=== PATIENT | female | born 1980 | race Caucasian/White ===

== ENCOUNTER 2016-12-26 13:46 | Emergency (ER) | payer OTHER ==
[2016-12-26 14:14] VITALS: BP 130/82; O2SAT 99
--- NOTE | 2016-12-26 14:42 | ERPHSYRPT ---
- History of Present Illness Time Seen by Provider: 12/26/16 14:22 Source: patient Patient Subjective Stated Complaint: PT REPORTS DX WITH RINGWORM ET PLACED ON MEDS-STATES IT HAS SPREAD SINCE THEN-REPORTS MILD ITCHING Triage Nursing Assessment: PT PINK WARM ET [id number] EASY ET NONLABORED- RASH NOTED TO [id number] DRAINAGE NOTED Physician History: CC: rash Hx: 36 y/o patient of Dr Cortes with itching rash, worse over a few days. At first she thought ringworm on her back and saw urgent care and started clotimazole which has not helped. The rash has spread to her back, trunk, arm, and legs, worse on trunk. Moderate pruritis. No fever or chills. No hx of same. ALL: None Meds: Abililfy, trazadone, xanax LMP November 27 BTL Timing/Duration: day(s) (few) Allergies/Adverse Reactions: No Known Drug Allergies Allergy (Verified 12/26/16 14:14) Home Medications: Alprazolam [Xanax 0.5 mg] 1.5 mg PO HS 03/30/14 [History] Aripiprazole 10 mg [Abilify 10 MG] 10 mg PO DAILY 12/26/16 [History] Trazodone HCl 50 mg [Desyrel 50 mg] 50 mg PO HS 12/26/16 [History] Hx Tetanus, Diphtheria Vaccination/Date Given: No Hx Influenza Vaccination/Date Given: Yes (2015) Hx Pneumococcal Vaccination/Date Given: No Immunizations Up to Date: Yes - Review of Systems Constitutional: No Fever, No Chills Eyes: No Symptoms Respiratory: No Dyspnea, No Wheezing Abdominal/Gastrointestinal: No Nausea, No Vomiting Skin: Pruritis, Rash Neurological: No Focal Weakness, No Parasthesia - Past Medical History Pertinent Past Medical History: No Neurological History: No Pertinent History ENT History: No Pertinent History Cardiac History: No Pertinent History Respiratory History: No Pertinent History Endocrine Medical History: No Pertinent History Musculoskeletal History: No Pertinent History GI Medical History: No Pertinent History, GERD History: No Pertinent History Psycho-Social History: Anxiety Female Reproductive Disorders: No Pertinent History Other Medical History: UTI - Past Surgical History Past Surgical History: Yes Neuro Surgical History: No Pertinent History Cardiac: No Pertinent History Respiratory: No Pertinent History Gastrointestinal: No Pertinent History Genitourinary: No Pertinent History Musculoskeletal: Orthopedic Surgery Female Surgical History: Section, Tubal Ligation Other Surgical History: C/S IN FEB ,TUBAL IN FEB - Social History Smoking Status: Never smoker Exposure to second hand smoke: No Drug Use: none Patient Lives Alone: No - Female History Hx Last Menstrual Period: NOVEMBER 27 2016 Hx Now: Yes - Nursing Vital Signs Nursing Vital Signs: Initial Vital Signs Temperature 97.6 F 12/26/16 14:10 Pulse Rate 85 12/26/16 14:10 Respiratory Rate 18 12/26/16 14:10 Blood Pressure 130/82 12/26/16 14:10 O2 Sat by Pulse Oximetry 99 12/26/16 14:10 Pain Scale Pain Intensity 0 - Physical Exam General Appearance: alert Eye Exam: PERRL/EOMI Ears, Nose, Throat Exam: moist mucous membranes Neck Exam: supple Cardiovascular Exam: regular rate/rhythm Gastrointestinal/Abdomen Exam: soft, No tenderness, No distention Extremity Exam: normal inspection, normal range of motion Neurologic Exam: alert, oriented x 3, cooperative Skin Exam: warm, dry, rash (scaling plaque rash with some underlying erythema on trunk in multiple spots and some on arms and legs. No petechia. Spares palms and soles.) SpO2: 99 Oxygen Delivery: Room Air - Course Nursing assessment & vital signs reviewed: Yes - Progress Progress Note: 12/26/16 14:42 The rash appears to be pytiriasis rosea. Instr given. Will order RPR. Counseled pt/family regarding: diagnosis, need for follow-up - Departure Time of Disposition: 14:43 Departure Disposition: Home Clinical Impression: Pityriasis rosea Condition: Stable Critical Care Time: No Referrals: CHELI CORTES [Primary Care Provider] - Instructions: Rash Additional Instructions: Your rash appears to be pityriasis rosea. Rx eurceyn/lidex/menthol. Rx atarax. Aveeno oatmeal baths. Follow up with Dr Cortes next week. Prescriptions: Hydroxyzine HCl 1 tab PO Q6H PRN PRN #20 tablet PRN Reason: rash,rest
[2016-12-26 14:52] VITALS: PULSE 81
== END 2016-12-26 14:54 | disposition home or self-care (01) ==
LOC: ED 13:46
DX: L42 Pityriasis rosea (principal)
CPT/HCPCS: 36415; 86592; 99284

== ENCOUNTER 2017-04-27 07:49 | Emergency (ER) | payer OTHER ==
[2017-04-27 08:00] VITALS: O2SAT 95
[2017-04-27] MEDS ORDERED: MOTRIN 600 MG PO ONE (08:05)
--- NOTE | 2017-04-27 08:09 | ERPHSYRPT ---
- History of Present Illness Time Seen by Provider: 04/27/17 08:03 Source: patient Patient Subjective Stated Complaint: pt states she twisted right ankle and fell yesterday.no other injury Triage Nursing Assessment: pt alert, resp easy, skin w/d,pink. walked to room. has swelling to lateral side of ankle, no bruising noted Physician History: CC: right ankle pain Hx: 36 y/o patient of Dr Cortes fell and twisted right ankle yesterday. Pain and swelling was severe, now moderate. No other injuries. No N/T/W. States not . Took APAP last night for pain. Severity of Pain-Max: severe Severity of Pain-Current: moderate Lower Extremities Pain: ankle: right Allergies/Adverse Reactions: No Known Drug Allergies Allergy (Verified 04/27/17 07:59) Home Medications: Aripiprazole 10 mg [Abilify 10 MG] 10 mg PO DAILY 12/26/16 [History] Trazodone HCl 50 mg [Desyrel 50 mg] 50 mg PO HS 12/26/16 [History] Hx Tetanus, Diphtheria Vaccination/Date Given: No Hx Influenza Vaccination/Date Given: Yes Hx Pneumococcal Vaccination/Date Given: No Immunizations Up to Date: Yes - Review of Systems Constitutional: No Symptoms Respiratory: No Dyspnea Cardiac: No Chest Pain Abdominal/Gastrointestinal: No Abdominal Pain Musculoskeletal: Fall, Injury, Joint Pain (right ankle), No Back Pain, No Neck Pain Neurological: No Focal Weakness, No Parasthesia All Other Systems: Reviewed and Negative - Past Medical History Pertinent Past Medical History: No Neurological History: No Pertinent History ENT History: No Pertinent History Cardiac History: No Pertinent History Respiratory History: No Pertinent History Endocrine Medical History: No Pertinent History Musculoskeletal History: No Pertinent History GI Medical History: No Pertinent History, GERD History: No Pertinent History Psycho-Social History: Anxiety Female Reproductive Disorders: No Pertinent History Other Medical History: UTI - Past Surgical History Past Surgical History: Yes Neuro Surgical History: No Pertinent History Cardiac: No Pertinent History Respiratory: No Pertinent History Gastrointestinal: No Pertinent History Genitourinary: No Pertinent History Musculoskeletal: Orthopedic Surgery Female Surgical History: Section, Tubal Ligation - Social History Smoking Status: Never smoker Exposure to second hand smoke: No Drug Use: none Patient Lives Alone: No - Female History Hx Last Menstrual Period: ablasion Hx Now: No - Nursing Vital Signs Nursing Vital Signs: Initial Vital Signs Temperature 99.0 F 04/27/17 07:56 Pulse Rate 100 H 04/27/17 07:56 Respiratory Rate 18 04/27/17 07:56 Blood Pressure 129/70 04/27/17 07:56 O2 Sat by Pulse Oximetry 95 04/27/17 07:56 Pain Scale Pain Intensity 7 - Physical Exam General Appearance: alert, obese Eyes, Ears, Nose, Throat Exam: normal ENT inspection, moist mucous membranes Neck Exam: normal inspection, supple Cardiovascular/Respiratory Exam: regular rate/rhythm Hips Exam: right: non-tender Legs Exam: right leg: non-tender, normal inspection Knees Exam: right knee: non-tender (no fibular head tenderness), normal inspection Ankle Exam: right ankle: bone tenderness (lateral malleolus), pain, soft tissue tenderness, swelling (moderate lateral) Foot Exam: right foot: non-tender, normal inspection Neuro/Tendon Exam: normal sensation, normal motor functions Mental Status Exam: alert, oriented x 3, cooperative Skin Exam: warm, dry, No rash SpO2 Interpretation: normal SpO2: 95 Oxygen Delivery: Room Air - Course Nursing assessment & vital signs reviewed: Yes - Radiology Exams right ankle X-ray Interpretation: Interpreted by me (lateral STS, fibular avulsion fracture) Ordered Tests: Active Orders 24 hr Category Date Time Status Cold Application STAT Care 04/27/17 08:05 Active Splint STAT Care 04/27/17 08:25 Active ANKLE (3 VIEWS) Stat Exams 04/27/17 08:05 Taken Medication Summary Discontinued Medications Generic Name Dose Route Start Last Admin Trade Name Omar PRN Reason Stop Dose Admin Ibuprofen 600 mg 04/27/17 08:05 04/27/17 08:11 Motrin 600 Mg PO 04/27/17 08:06 600 mg STAT ONE Administration Ibuprofen Confirm 04/27/17 08:10 Motrin 600 Mg Administered 04/27/17 08:11 Dose 600 mg .ROUTE .STK-MED ONE - Progress Progress Note: 04/27/17 08:30 Pt has high grade sprain and possible avulsion fracture fibular. CAM boot. She prefers no crutches. Follow up advised. Counseled pt/family regarding: diagnosis, need for follow-up, rad results - Departure Time of Disposition: 08:31 Departure Disposition: Home Clinical Impression: Right ankle sprain Qualifiers: Encounter type: initial encounter Involved ligament of ankle: unspecified ligament Qualified Code(s): S93.401A - Sprain of unspecified ligament of right ankle, initial encounter Avulsion fracture of lateral malleolus of right fibula Qualifiers: Encounter type: initial encounter Fracture type: closed Qualified Code(s): S82.61XA - Displaced fracture of lateral malleolus of right fibula, initial encounter for closed fracture Condition: Stable Critical Care Time: No Referrals: CHELI CORTES [Primary Care Provider] - Instructions: Ankle Sprain, Ankle Fracture Additional Instructions: CAM walker boot. Rx motrin=ibuprofen. Rx norco if needed for pain- no driving or operating machinery. Ice, rest, elevate. Follow up this week with Dr Cortes or Dr Peña. Prescriptions: Hydrocodone Bit/Acetaminophen [[place] 5-325 Tablet] 1 each PO Q6H PRN PRN #10 tablet MDD 4 PRN Reason: Pain Ibuprofen 600 mg PO Q6H PRN PRN #24 tablet PRN Reason: Pain
[2017-04-27] MEDS ORDERED: MOTRIN 600 MG ONE (08:10)
--- NOTE | 2017-04-27 08:37 | XRAY ---
Indication: Pain following twisting injury. Comparison: None 3 views of the right ankle demonstrates soft tissue swelling and tiny well-circumscribed ossification adjacent to the tip of the lateral malleolus either degenerative versus old injury. No other bony, articular, or soft tissue abnormalities.
[2017-04-27 09:40] VITALS: BP 115/78; PULSE 95
== END 2017-04-27 09:28 | disposition home or self-care (01) ==
LOC: ED 07:49
DX: S93.401A Sprain of unspecified ligament of right ankle, initial encounter (principal); S82.61XA Displaced fracture of lateral malleolus of right fibula, initial encounter for closed fracture; W19.XXXA Unspecified fall, initial encounter; X50.0XXA Overexertion from strenuous movement or load, initial encounter; M25.571 Pain in right ankle and joints of right foot
CPT/HCPCS: 73610; 99283; L4386; A9270-GY

== ENCOUNTER 2021-05-13 11:11 | Observation (INO) | payer MEDICAID ==
[2021-05-13 12:23] LABS: INFLUENZA A NEGATIVE (NEGATIVE); INFLUENZA B NEGATIVE (NEGATIVE); RESPIRATORY SYNCTIAL VIRUS NEGATIVE (Negative); SARS-CoV-2 Xpert Express NEGATIVE (NEGATIVE)
[2021-05-13] MEDS: XANAX 1 MG PO SCH ×2 (13:47→18:00)
[2021-05-13] MEDS ORDERED: MEDICATION INTERVENTION MC SCH (15:15)
[2021-05-13 17:37] VITALS: BP 142/79; PULSE 80; O2SAT 97
[2021-05-13] MEDS ORDERED: NON-FORMULARY ITEM (Hydroxyzine Hcl [Hydroxyzine Hcl] 50 MG Tablet) PO SCH (22:00)
[2021-05-13] MEDS ORDERED: Pepcid 20 MG PO SCH (22:00)
[2021-05-13] MEDS ORDERED: DESYREL 50 MG PO SCH (22:00)
[2021-05-13] MEDS ORDERED: NON-FORMULARY ITEM (Pramipexole Di-Hcl [Pramipexole Dihydrochloride] 0.25 MG Tablet) PO SCH (22:00)
[2021-05-13] MEDS ORDERED: ATARAX 25 MG PO SCH (22:00)
[2021-05-13] MEDS ORDERED: Mirapex 0.5 MG Tablet PO SCH (22:00)
[2021-05-13] MEDS ORDERED: NON-FORMULARY ITEM (Vortioxetine Hydrobromide [Trintellix] 20 MG Tablet) PO SCH (22:00)
[2021-05-13] MEDS ORDERED: Trileptal 300 MG Tablet PO SCH (22:00)
[2021-05-14] MEDS ORDERED: Trileptal 300 MG Tablet PO SCH (10:00)
--- NOTE | 2021-05-15 06:12 | PCM.HP.ADD ---
Addendum to History & Physical - History & Physical Addendum Addendum to History & Physical: This certifies that the History & Physical in the electronic chart reflects the current health status of the patient. If there are changes in the H&P these changes/exceptions are listed as follows. (late entry for 05/13/21)
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
== END 2021-05-13 18:10 | disposition home health service (06) ==
LOC: ICU 11:11
PROVIDERS: ADMIT Family Medicine; ATTEND Family Medicine
DX: F33.2 Major depressive disorder, recurrent severe without psychotic features (principal); F41.9 Anxiety disorder, unspecified; R45.851 Suicidal ideations; E11.9 Type 2 diabetes mellitus without complications; Z79.899 Other long term (current) drug therapy; Z20.828 Contact with and (suspected) exposure to other viral communicable diseases
CPT/HCPCS: 0241U; 82947; G0378; A9270-GY